=== PATIENT | female | born 1955 | race Caucasian/White ===

== ENCOUNTER 2017-01-14 17:36 | Day surgery (SDC) | payer OTHER ==
[~2017-01-14] VITALS: Ht 162.6 cm; Wt 43.1 kg
[~2017-01-14 17:36] MED LIST: ALAVERT10 MG PO; ALDACTONE25 MG PO; ALDACTONE50 MG PO; ALLEGRA180 MG PO; AMLODIPINE BES2.5 MG PO; ASPIR-LOW81 MG PO; ASPIRIN325 MG PO; B-12250 MCG PO; BACLOFEN10 MG PO; CARDIZEM90 MG PO; CELEXA40 MG PO; CITALOPRAM HBR40 M1 PO; CLARITIN10 M3 PO; DILANTIN100 MG PO; DIVALPROEX SOD125 M1 PO; ERYTHROMYC1 APPLICAT BOTH EYES; Ecotrin PO; Effexor XR PO; FIORICET 50-301 EACH PO; FIORICET,ESG1 TABLET PO; FLEXERIL10 MG PO; FLONASE16 G1 BOTH NARES; FLOVENT 44120 INHALA IH; Feosol PO; GABAPENTIN100 MG PO; GABAPENTIN300 MG PO; HYDROCODON-ACE1 EAC7 PO; IMODIUM MS REL1 EACH PO; INDOCIN50 MG PO; IRON325 M1 PO; IRON45 MG; IRON45 MG PO; IRON55 MG PO; KETOCONAZOLE120 ML TP; KLONOPIN0.5 M1 PO; Keppra PO; LEVOTHROID50 MCG PO; LEVOTHYROXINE100 MCG PO; LEVOXYL50 MCG PO; LIDODERM 5% P1 PATCH PO; LIDODERM 5% P1 PATCH TD; LOPRESSOR25 MG PO; Levothroid,Synthroid PO; METOPROLOL TART25 MG PO; MEVACOR20 MG PO; MULTI VITAMIN1 EACH PO; MULTIVITAMIN1 EAC2 PO; MYSOLINE50 MG PO; Mysoline PO; NAMENDA10 MG PO; NEURONTIN100 MG PO; NIZORAL 2% CREA15 GM TP; NORCO 5/3251 TABLET PO; NOVOLOG PE100 UNITS/ SC; Neurontin PO; OMEPRAZOLE40 M1 PO; OXAYDO5 MG PO; OXYCODONE-APAP1 EAC6 PO; PERCOCET 5/31 TABLET PO; PERCOCET 7.51 TABLET PO; PRAVACHOL20 MG PO; PREDNISONE50 MG PO; PRILOSEC40 MG PO; PROMETHAZINE HC25 M1 PO; PROVENTIL,2.5 MG/3 M IH; PROZAC40 MG PO; Percocet 5/325,Endoc PO; RANITIDINE HCL150 MG PO; SPIRONOLACTONE25 MG PO; SYNTHROID50 MCG PO; VALTREX1000 MG PO; VALTREX50 MG/ML; VALTREX50 MG/ML PO; VIMPAT150 MG PO; VIMPAT50 MG PO; VITAMIN B-12500 MC5 SL; VITAMIN B12-FO1 EACH; VITAMIN B12-FO1 EACH PO; VITAMIN D1000 UNIT PO; ValTRex PO; Vitamin B-12 PO; ZANTAC300 MG PO; ZOFRAN ODT4 MG PO; ZOFRAN4 MG PO; [UNRECOGNIZED DRUG - OTHER]; multivitamin; naproxen
[2017-01-14 23:10] LABS: BASOPHIL COUNT 0.1 K/uL (0-0.1); EOSINOPHIL (%) 4.8 % (0-5); EOSINOPHIL COUNT 0.5 K/uL (0-0.3); HEMATOCRIT 48.4 % (36.0-46.0); IMMATURE GRANULOCYTE (%) 0.3 % (0.0-0.7); INSTRUMENT ABS NEUTROPHIL CT 6.8 K/uL; LYMPHOCYTE COUNT 1.7 K/uL (1.0-2.8); MCH 31.3 PG (29.0-34.0); MCHC 31.8 G/DL (30.0-36.0); MCV 98.4 FL (83-99); MEAN PLAT.VOLUME 9.7 uM^3 (9.5-12.4); MONOCYTE COUNT 0.5 K/uL (0-0.8); NEUTROPHIL (%) 71.7 % (45-76); NEUTROPHIL COUNT 6.8 K/uL (1.8-6.4); PLATELET COUNT 242 K/uL (156-360); RBC DIS.WIDTH-CV 12.9 % (11.8-14.6); RBC DIS.WIDTH-SD 46.5 % (39-53); RED BLOOD COUNT 4.92 M/uL (3.80-5.20); WHITE BLOOD COUNT 9.5 K/uL (4.1-10.2)
[2017-01-14 23:12] VITALS: BP 142/89
[2017-01-14] MEDS ORDERED: GABAPENTIN100 MG PO (23:13)
[2017-01-14 23:21] LABS: CHLORIDE 106 mEq/L (99-109); POTASSIUM 4.4 mEq/L (3.7-5.4); SODIUM 142 mEq/L (136-147)
[2017-01-14 23:23] LABS: GLUCOSE 83 mg/dL (70-99)
[2017-01-14 23:24] LABS: ANION GAP 13 MEQ/L (2-14)
[2017-01-14 23:27] LABS: GFR ESTIMATE (CALCULATED) > 59 mL/min/
[2017-01-14 23:28] LABS: UREA NITROGEN (BUN) 12 mg/dL (9-23)
== END 2017-01-15 00:22 | disposition home or self-care (01) ==
LOC: EME 17:36 → SDC 23:29
PROVIDERS: Physician Assistant
PROC: 0DC38ZZ Extirpation of Matter from Lower Esophagus, Via Natural or Artificial Opening Endoscopic (ICD-10-PCS; principal; 2017-01-14)
DX: R13.10 Dysphagia, unspecified (principal); T18.128A Food in esophagus causing other injury, initial encounter; K20.9 Esophagitis, unspecified; K22.2 Esophageal obstruction; K29.70 Gastritis, unspecified, without bleeding; F32.9 Major depressive disorder, single episode, unspecified; B00.9 Herpesviral infection, unspecified; E03.9 Hypothyroidism, unspecified; M19.90 Unspecified osteoarthritis, unspecified site; I10 Essential (primary) hypertension; G43.909 Migraine, unspecified, not intractable, without status migrainosus; J44.9 Chronic obstructive pulmonary disease, unspecified; E78.5 Hyperlipidemia, unspecified; G40.909 Epilepsy, unspecified, not intractable, without status epilepticus; Z79.899 Other long term (current) drug therapy; Z88.2 Allergy status to sulfonamides
CPT/HCPCS: 70360; 71020; 80048; 81003; 85025; 93005; C9113; J0780; J1885; J7030

== ENCOUNTER 2017-01-21 11:52 | Emergency (ER) | payer OTHER ==
[~2017-01-21] VITALS: Ht 162.6 cm; Wt 43.8 kg
[2017-01-21 13:57] LABS: CHLORIDE 108 mEq/L (99-109); HEMATOCRIT 37.3 % (36.0-46.0); MCH 31.6 PG (29.0-34.0); MCHC 31.9 G/DL (30.0-36.0); MCV 98.9 FL (83-99); MEAN PLAT.VOLUME 9.5 uM^3 (9.5-12.4); PLATELET COUNT 194 K/uL (156-360); POTASSIUM 4.5 mEq/L (3.7-5.4); RBC DIS.WIDTH-CV 12.7 % (11.8-14.6); RBC DIS.WIDTH-SD 46.1 % (39-53); RED BLOOD COUNT 3.77 M/uL (3.80-5.20); SODIUM 142 mEq/L (136-147); WHITE BLOOD COUNT 7.6 K/uL (4.1-10.2)
[2017-01-21 13:58] LABS: GLUCOSE 104 mg/dL (70-99)
[2017-01-21 14:00] LABS: ANION GAP 8 MEQ/L (2-14)
[2017-01-21 14:02] LABS: GFR ESTIMATE (CALCULATED) > 59 mL/min/
[2017-01-21 14:03] LABS: UREA NITROGEN (BUN) 20 mg/dL (9-23)
[2017-01-21 14:10] LABS: TROP-I INTERPRETATION NEGATIVE; TROPONIN-I < 0.01 ng/mL (0.0-0.30)
[2017-01-21 16:00] LABS: ADD MIUA? NO; BILIRUBIN NEGATIVE; BLOOD NEGATIVE; COLOR YELLOW ((YELLOW)); GLUCOSE (STRIP) NEGATIVE; KETONES NEGATIVE; LEUKOCYTES NEGATIVE; NITRITE NEGATIVE; PROTEIN (STRIP) NEGATIVE; SPECIFIC GRAVITY 1.014 (1.000-1.030); UCUL ADDED? NO; UROBILINOGEN 0.2 MG/DL (0.2-1.0)
[2017-01-21 16:30] VITALS: BP 155/79
== END 2017-01-21 17:02 | disposition home or self-care (01) ==
LOC: EME 11:52
PROVIDERS: Emergency Medicine
DX: B34.9 Viral infection, unspecified (principal); E03.9 Hypothyroidism, unspecified; R53.1 Weakness; R19.7 Diarrhea, unspecified; R26.9 Unspecified abnormalities of gait and mobility; J44.9 Chronic obstructive pulmonary disease, unspecified; I10 Essential (primary) hypertension
CPT/HCPCS: 71020; 80048; 81003; 84439; 84443; 84484; 85027; 93005; 99281; 99285; J7030

== ENCOUNTER 2017-01-23 01:12 | Observation (INO) | payer OTHER ==
[~2017-01-23] VITALS: Ht 162.6 cm; Wt 46.3 kg
[2017-01-23 02:30] LABS: BASOPHIL COUNT 0.1 K/uL (0-0.1); EOSINOPHIL (%) 5.2 % (0-5); EOSINOPHIL COUNT 0.4 K/uL (0-0.3); HEMATOCRIT 34.2 % (36.0-46.0); IMMATURE GRANULOCYTE (%) 0.3 % (0.0-0.7); INSTRUMENT ABS NEUTROPHIL CT 4.8 K/uL; LYMPHOCYTE COUNT 1.7 K/uL (1.0-2.8); MCH 31.2 PG (29.0-34.0); MCHC 31.3 G/DL (30.0-36.0); MCV 99.7 FL (83-99); MONOCYTE COUNT 0.7 K/uL (0-0.8); NEUTROPHIL (%) 62.4 % (45-76); NEUTROPHIL COUNT 4.8 K/uL (1.8-6.4); PLATELET COUNT 205 K/uL (156-360); RBC DIS.WIDTH-CV 12.9 % (11.8-14.6); RBC DIS.WIDTH-SD 47.1 % (39-53); RED BLOOD COUNT 3.43 M/uL (3.80-5.20); WHITE BLOOD COUNT 7.7 K/uL (4.1-10.2)
[2017-01-23 02:39] LABS: CHLORIDE 106 mEq/L (99-109); POTASSIUM 3.9 mEq/L (3.7-5.4); SODIUM 139 mEq/L (136-147)
[2017-01-23 02:41] LABS: GLUCOSE 80 mg/dL (70-99)
[2017-01-23 02:42] LABS: ANION GAP 10 MEQ/L (2-14)
[2017-01-23 02:43] LABS: TOTAL BILIRUBIN 0.3 mg/dL (0.0-1.0)
[2017-01-23 02:45] LABS: ALKALINE PHOSPHATASE 55 IU/L (3-129); GFR ESTIMATE (CALCULATED) > 59 mL/min/
[2017-01-23 02:46] LABS: UREA NITROGEN (BUN) 21 mg/dL (9-23)
[2017-01-23 02:48] LABS: LIPASE 14 U/L (1.0-51.0)
[2017-01-23 02:55] LABS: TROP-I INTERPRETATION NEGATIVE; TROPONIN-I < 0.01 ng/mL (0.0-0.30)
[2017-01-23 05:11] LABS: ADD MIUA? YES; BILIRUBIN NEGATIVE; BLOOD NEGATIVE; COLOR YELLOW ((YELLOW)); GLUCOSE (STRIP) NEGATIVE; KETONES NEGATIVE; LEUKOCYTES NEGATIVE; NITRITE NEGATIVE; PROTEIN (STRIP) NEGATIVE; SPECIFIC GRAVITY 1.011 (1.000-1.030); UROBILINOGEN 0.2 MG/DL (0.2-1.0)
[2017-01-23 05:27] LABS: AMPHETAMINE NEGATIVE (500 ng/mL); BARBITURATES PRESUMPTIVE POSITIVE (200 ng/mL); BENZODIAZEPINES NEGATIVE (150 ng/mL); COCAINE NEGATIVE (150 ng/mL); INTERNAL CONTROLS VALID? YES; METHADONE NEGATIVE (200 ng/mL); METHAMPHETAMINE NEGATIVE (500 ng/mL); OPIATES (MORPHINE) NEGATIVE (100 ng/mL); OXYCODONE NEGATIVE (100 ng/mL); PHENCYCLIDINE NEGATIVE (25 ng/mL); PROPOXYPHENE NEGATIVE (300 ng/mL); THC CANNABINOIDS NEGATIVE (50 ng/mL); TRICYCLIC ANTIDEPRESSANTS NEGATIVE (300 ng/mL)
[2017-01-23 05:28] LABS: SAMPLE HEMOLYSIS CHECK 0; SAMPLE ICTERIC CHECK 0; SAMPLE LIPEMIA CHECK 0; SERUM ETHYL ALCOHOL < 10 mg/dL
[2017-01-23 05:28] LABS: ADD MEDTOX COMMENT Y
[2017-01-23 05:37] LABS: BACTERIA NONE SEEN /HPF; EPITHELIAL CELLS RARE /HPF; MUCUS TRACE /LPF; RED BLOOD CELLS 0-5 /HPF (0-5); UCUL ADDED? NO; WHITE BLOOD CELLS 0-5 /HPF (0-5)
[2017-01-23 07:47] VITALS: BP 165/87
[2017-01-23] MEDS ORDERED: METOPROLOL TART50 MG PO (10:18)
[2017-01-23] MEDS ORDERED: MEMANTINE HCL10 MG PO (10:32)
[2017-01-23] MEDS ORDERED: CYCLOBENZAPRINE10 MG PO (10:33)
[2017-01-23 12:04] VITALS: BP 136/75
[2017-01-23 21:00] VITALS: BP 105/56
[2017-01-23 23:41] VITALS: BP 106/60
[2017-01-24 04:05] VITALS: BP 151/72
[2017-01-24 07:07] VITALS: BP 151/72
[2017-01-24 07:28] LABS: HEMATOCRIT 34.9 % (36.0-46.0); MCH 31.1 PG (29.0-34.0); MCHC 30.9 G/DL (30.0-36.0); MCV 100.6 FL (83-99); MEAN PLAT.VOLUME 10.3 uM^3 (9.5-12.4); PLATELET COUNT 156 K/uL (156-360); RBC DIS.WIDTH-CV 12.9 % (11.8-14.6); RBC DIS.WIDTH-SD 47.8 % (39-53); RED BLOOD COUNT 3.47 M/uL (3.80-5.20)
[2017-01-24 07:43] LABS: ANION GAP 4 MEQ/L (2-14); CHLORIDE 107 MEQ/L (99-109); GFR ESTIMATE (CALCULATED) > 59 mL/min/; GLUCOSE 85 mg/dL (70-99); SAMPLE HEMOLYSIS CHECK 0; SAMPLE ICTERIC CHECK 0; SAMPLE LIPEMIA CHECK 0; SODIUM 141 MEQ/L (136-147); UREA NITROGEN (BUN) 14 mg/dL (9-23)
[2017-01-24 07:44] LABS: WHITE BLOOD COUNT 4.1 K/uL (4.1-10.2)
[2017-01-24 11:44] VITALS: BP 108/64
== END 2017-01-24 14:08 | disposition home or self-care (01) ==
LOC: EME 01:12 → EDOF 06:46 → 5WEST 06:46 → EDOF 06:46 → 5WEST 07:43
PROVIDERS: Emergency Medicine; Hospitalist
DX: T48.1X1A Poisoning by skeletal muscle relaxants [neuromuscular blocking agents], accidental (unintentional), initial encounter (principal); T42.8X1A Poisoning by antiparkinsonism drugs and other central muscle-tone depressants, accidental (unintentional), initial encounter; G92 Toxic encephalopathy; G40.909 Epilepsy, unspecified, not intractable, without status epilepticus; E46 Unspecified protein-calorie malnutrition; R62.7 Adult failure to thrive; K21.9 Gastro-esophageal reflux disease without esophagitis; K20.9 Esophagitis, unspecified; K22.2 Esophageal obstruction; J44.9 Chronic obstructive pulmonary disease, unspecified; I10 Essential (primary) hypertension; E78.5 Hyperlipidemia, unspecified; E03.9 Hypothyroidism, unspecified; M51.36 Other intervertebral disc degeneration, lumbar region; Z68.1 Body mass index [BMI] 19.9 or less, adult
CPT/HCPCS: 70450; 71020; 72131; 80048; 80053; 81003; 83690; 84443; 84484; 84999; 85025; 85027; 93005; 94640; 94640 76; 99281; 99285; G0378; G0480; G8978 GP CH; G8979 GP CH; G8980 GP CH; J1644; J2310; J7030; J7120; S0028

== ENCOUNTER 2017-01-29 22:09 | Inpatient (IN) | payer OTHER ==
[~2017-01-29] VITALS: Ht 142.2 cm; Wt 45.0 kg
[~2017-01-29 22:09] MED LIST changes: +CYCLOBENZAPRINE10 MG PO; +MEMANTINE HCL10 MG PO; +METOPROLOL TART50 MG PO
[2017-01-29 23:10] LABS: EOSINOPHIL (%) 1.8 % (0-5); EOSINOPHIL COUNT 0.1 K/uL (0-0.3); HEMATOCRIT 35.6 % (36.0-46.0); IMMATURE GRANULOCYTE (%) 0.2 % (0.0-0.7); INSTRUMENT ABS NEUTROPHIL CT 4.7 K/uL; LYMPHOCYTE COUNT 0.7 K/uL (1.0-2.8); MCH 31.2 PG (29.0-34.0); MCHC 30.9 G/DL (30.0-36.0); MCV 100.8 FL (83-99); MEAN PLAT.VOLUME 9.5 uM^3 (9.5-12.4); MONOCYTE (%) 8.5 % (3-12); MONOCYTE COUNT 0.5 K/uL (0-0.8); NEUTROPHIL (%) 77.1 % (45-76); NEUTROPHIL COUNT 4.7 K/uL (1.8-6.4); PLATELET COUNT 179 K/uL (156-360); RBC DIS.WIDTH-CV 12.8 % (11.8-14.6); RBC DIS.WIDTH-SD 47.2 % (39-53); RED BLOOD COUNT 3.53 M/uL (3.80-5.20)
[2017-01-29 23:17] LABS: CHLORIDE 105 mEq/L (99-109); INTER. NORMALIZED RATIO 1.1; POTASSIUM 4.1 mEq/L (3.7-5.4); PROTHROMBIN TIME 10.7 (9.2-11.2); PTT 31.1 (25-32); SODIUM 139 mEq/L (136-147)
[2017-01-29 23:19] LABS: GLUCOSE 127 mg/dL (70-99)
[2017-01-29 23:20] LABS: ANION GAP 8 MEQ/L (2-14)
[2017-01-29 23:23] LABS: GFR ESTIMATE (CALCULATED) > 59 mL/min/; UREA NITROGEN (BUN) 16 mg/dL (9-23)
[2017-01-29 23:27] LABS: TROP-I INTERPRETATION NEGATIVE; TROPONIN-I < 0.01 ng/mL (0.0-0.30)
[2017-01-30] VITALS (16 sets, daily range): BP systolic 90–191; BP diastolic 24–102
[2017-01-30] MEDS ORDERED: KETOCONAZOLE120 ML TP (00:03)
[2017-01-30 00:12] LABS: HDL CHOLESTEROL 45 MG/DL (Desirable>=50); LDL CHOLESTEROL 113 mg/dL (Desirable<100); NON-HDL CHOLESTEROL 127 mg/dL (Desirable<160); TOTAL CHOLESTEROL 172 mg/dL (Desirable<200); TRIGLYCERIDES 69 MG/DL (Normal: <150)
[2017-01-30 00:59] LABS: IMM.RETIC FRACTION 10.4 % (3-19); RETIC HGB EQUIVALENT 32.2 (28-36)
[2017-01-30 01:34] LABS: ALKALINE PHOSPHATASE 52 IU/L (3-129); DIRECT BILIRUBIN 0.1 mg/dL (0.0-0.3); PREALBUMIN 12.5 mg/dL (10-40); SAMPLE HEMOLYSIS CHECK 0; SAMPLE ICTERIC CHECK 0; SAMPLE LIPEMIA CHECK 0; TOTAL BILIRUBIN 0.3 MG/DL (0.0-1.0)
[2017-01-30 03:34] LABS: BASE EXCESS -0.1 mEq/L (-3 to +3); BICARBONATE 25.4 mEq/L (22-26); CARBOXY HGB 0.5 % (0-5); COMMENTS - BLOOD GASES C+A+; DEVICE NC; METHEMOGLOBIN 1.2 % (0-1.5); O2 FLOW 2 L/MIN; PCO2 44 mm Hg (35-45); PO2 114 mm Hg (80-100); SITE LR; TOTAL RESP RATE 14 resp/min; pH 7.37 (7.35-7.45)
[2017-01-30 03:51] LABS: POINT-OF-CARE METER ID UU13113698; POINT-OF-CARE USER ID AHSUCEG
[2017-01-30 04:15] LABS: CHLORIDE 108 mEq/L (99-109); POTASSIUM 4.1 mEq/L (3.7-5.4); SODIUM 139 mEq/L (136-147)
[2017-01-30 04:18] LABS: ANION GAP 5 MEQ/L (2-14)
[2017-01-30 04:21] LABS: GFR ESTIMATE (CALCULATED) > 59 mL/min/
[2017-01-30 04:22] LABS: UREA NITROGEN (BUN) 13 mg/dL (9-23)
[2017-01-30 04:24] LABS: POINT-OF-CARE METER ID UU13113698
[2017-01-30 04:25] LABS: GLUCOSE 235 mg/dL (70-99)
[2017-01-30 05:58] LABS: METH RESISTANT S AUREUS PCR NEGATIVE (NEGATIVE)
[2017-01-30 06:03] LABS: PROBE CHECK PASS; SPECIMEN PROCESSING CONTROL PASS
[2017-01-30 07:34] LABS: Estimated Average Glucose 114 mg/dL (70-123); HEMOGLOBIN A1c (GLYCOHEMOGLOB) 5.6 % HGB (Below 5.7)
[2017-01-31 03:20] VITALS: BP 149/74
[2017-01-31 06:27] LABS: HEMATOCRIT 31.4 % (36.0-46.0); MCH 31.3 PG (29.0-34.0); MCHC 30.9 G/DL (30.0-36.0); MCV 101.3 FL (83-99); PLATELET COUNT 160 K/uL (156-360); RBC DIS.WIDTH-CV 12.8 % (11.8-14.6); RBC DIS.WIDTH-SD 47.5 % (39-53)
[2017-01-31 06:31] LABS: WHITE BLOOD COUNT 3.8 K/uL (4.1-10.2)
[2017-01-31 06:47] LABS: ANION GAP 3 MEQ/L (2-14); CHLORIDE 110 MEQ/L (99-109); GFR ESTIMATE (CALCULATED) > 59 mL/min/; POTASSIUM 4.2 MEQ/L (3.7-5.4); SAMPLE HEMOLYSIS CHECK 0; SAMPLE ICTERIC CHECK 0; SAMPLE LIPEMIA CHECK 0; SODIUM 141 MEQ/L (136-147); UREA NITROGEN (BUN) 11 mg/dL (9-23)
[2017-01-31 06:55] LABS: GLUCOSE 100 mg/dL (70-99)
[2017-01-31 09:18] VITALS: BP 135/63
[2017-01-31 10:25] LABS: FERRITIN 92 NG/ML (10-291)
[2017-01-31 10:57] LABS: IRON 47 MCG/DL (35-150)
[2017-01-31 17:55] VITALS: BP 140/79
[2017-01-31 22:56] VITALS: BP 170/83
[2017-01-31 23:00] VITALS: BP 160/85
[2017-02-01 08:55] VITALS: BP 178/86
[2017-02-01] MEDS ORDERED: FERROUS SULFAT325 MG PO (09:44)
[2017-02-01 11:31] VITALS: BP 181/91
[2017-02-01 13:00] VITALS: BP 146/84
== END 2017-02-01 13:24 | disposition home or self-care (01) | DRG 917 ==
LOC: EME 22:09 → 4SOUTH 01-30 00:32 → 5EAST 01-30 00:32 → EDOF 01-30 00:32 → 4WEST 01-30 00:32 → 4SOUTH 01-30 02:36 → 4WEST 01-30 04:18 → 5EAST 01-30 20:13
PROVIDERS: Emergency Medicine; Internal Medicine
DX: T40.2X1A Poisoning by other opioids, accidental (unintentional), initial encounter (principal); G92 Toxic encephalopathy; T42.4X1A Poisoning by benzodiazepines, accidental (unintentional), initial encounter; E46 Unspecified protein-calorie malnutrition; R64 Cachexia; I47.2 Ventricular tachycardia; R53.1 Weakness; R29.6 Repeated falls; R62.7 Adult failure to thrive; K22.2 Esophageal obstruction; M54.9 Dorsalgia, unspecified; D64.9 Anemia, unspecified; D75.89 Other specified diseases of blood and blood-forming organs; G40.909 Epilepsy, unspecified, not intractable, without status epilepticus; I10 Essential (primary) hypertension; E78.5 Hyperlipidemia, unspecified; J44.9 Chronic obstructive pulmonary disease, unspecified; E03.9 Hypothyroidism, unspecified; Z87.891 Personal history of nicotine dependence
CPT/HCPCS: 36600; 70450; 71010; 72070; 72110; 72128; 72131; 73502; 80048; 80061; 80076; 80306 90; 81003; 82140; 82607; 82728; 82746; 82803; 82948; 83036; 83540; 84134; 84443; 84466; 84484; 85025; 85027; 85045; 85610; 85730; 87641; 93005; 97530 GO; 97530 GP; 99281; 99284; J1644; J2060; J2270; J2310; J7030; J7042

== ENCOUNTER 2017-03-01 14:47 | Emergency (ER) | payer OTHER ==
[~2017-03-01] VITALS: Ht 162.6 cm; Wt 54.5 kg
[~2017-03-01 14:47] MED LIST changes: +FERROUS SULFAT325 MG PO
[2017-03-01 16:44] LABS: CHLORIDE 106 mEq/L (99-109); HEMATOCRIT 34.6 % (36.0-46.0); MCHC 31.2 G/DL (30.0-36.0); MCV 99.4 FL (83-99); MEAN PLAT.VOLUME 9.6 uM^3 (9.5-12.4); PLATELET COUNT 166 K/uL (156-360); RBC DIS.WIDTH-SD 46.8 % (39-53); RED BLOOD COUNT 3.48 M/uL (3.80-5.20); SODIUM 137 mEq/L (136-147); WHITE BLOOD COUNT 7.3 K/uL (4.1-10.2)
[2017-03-01 16:46] LABS: GLUCOSE 97 mg/dL (70-99)
[2017-03-01 16:47] LABS: ANION GAP 5 MEQ/L (2-14)
[2017-03-01 16:49] LABS: GFR ESTIMATE (CALCULATED) > 59 mL/min/
[2017-03-01 16:50] LABS: UREA NITROGEN (BUN) 19 mg/dL (9-23)
[2017-03-01 17:25] LABS: ADD MIUA? YES; BILIRUBIN NEGATIVE; BLOOD NEGATIVE; COLOR YELLOW ((YELLOW)); GLUCOSE (STRIP) NEGATIVE; KETONES NEGATIVE; LEUKOCYTES TRACE; NITRITE NEGATIVE; PROTEIN (STRIP) 30; SPECIFIC GRAVITY 1.015 (1.000-1.030); UROBILINOGEN 0.2 MG/DL (0.2-1.0)
[2017-03-01 17:39] LABS: BACTERIA NONE SEEN /HPF; EPITHELIAL CELLS RARE /HPF; MUCUS NONE SEEN /LPF; RED BLOOD CELLS 0-5 /HPF (0-5); UCUL ADDED? NO
[2017-03-01 17:40] LABS: INTER. NORMALIZED RATIO 1.1; PROTHROMBIN TIME 10.7 (9.2-11.2); PTT 29.3 (25-32)
[2017-03-01] MEDS ORDERED: PERCOCET 5/31 TABLET PO (19:43)
[2017-03-01] MEDS ORDERED: ULTRAM50 MG PO (19:43)
[2017-03-01 20:21] VITALS: BP 131/74
== END 2017-03-01 20:25 | disposition home or self-care (01) ==
LOC: EME 14:47
PROVIDERS: Emergency Medicine
DX: S72.112A Displaced fracture of greater trochanter of left femur, initial encounter for closed fracture (principal); S32.512A Fracture of superior rim of left pubis, initial encounter for closed fracture; W01.0XXA Fall on same level from slipping, tripping and stumbling without subsequent striking against object, initial encounter; R53.1 Weakness; R53.83 Other fatigue; R60.0 Localized edema; I10 Essential (primary) hypertension; E03.9 Hypothyroidism, unspecified; J44.9 Chronic obstructive pulmonary disease, unspecified; J45.909 Unspecified asthma, uncomplicated; Z87.891 Personal history of nicotine dependence
CPT/HCPCS: 72192; 73502; 80048; 81003; 85027; 85610; 85730; 99281; 99285

== ENCOUNTER 2017-03-18 18:37 | Emergency (ER) | payer OTHER ==
[~2017-03-18] VITALS: Ht 162.6 cm; Wt 46.8 kg
[~2017-03-18 18:37] MED LIST changes: +ULTRAM50 MG PO
[2017-03-18] MEDS ORDERED: FLEXERIL10 MG PO (19:27)
[2017-03-18] MEDS ORDERED: PROMETHAZINE HC25 M1 PO (19:28)
[2017-03-18] MEDS ORDERED: OMEPRAZOLE40 M1 PO (19:33)
[2017-03-18] MEDS ORDERED: PERCOCET 7.51 TABLET PO (19:34)
[2017-03-18] MEDS ORDERED: BACLOFEN10 MG PO (19:39)
[2017-03-18] MEDS ORDERED: DRONABINOL2.5 MG PO (19:40)
[2017-03-18] MEDS ORDERED: CLARITIN,ALAVAR10 MG PO (19:44)
[2017-03-18] MEDS ORDERED: NORCO 5/3251 TABLET PO (20:45)
[2017-03-18 20:52] VITALS: BP 120/65
== END 2017-03-18 20:53 | disposition home or self-care (01) ==
LOC: EME 18:37
DX: M54.5 Low back pain (principal); Z87.891 Personal history of nicotine dependence
CPT/HCPCS: 72100; 99281; 99284

== ENCOUNTER 2017-04-29 10:13 | Emergency (ER) | payer OTHER ==
[~2017-04-29] VITALS: Ht 162.6 cm; Wt 44.1 kg
[~2017-04-29 10:13] MED LIST changes: +CLARITIN,ALAVAR10 MG PO; +DRONABINOL2.5 MG PO
[2017-04-29 11:39] LABS: EOSINOPHIL (%) 0.4 % (0-5); HEMATOCRIT 36.5 % (36.0-46.0); IMMATURE GRANULOCYTE (%) 0.4 % (0.0-0.7); INSTRUMENT ABS NEUTROPHIL CT 3.9 K/uL; LYMPHOCYTE COUNT 0.8 K/uL (1.0-2.8); MCH 31.5 PG (29.0-34.0); MCHC 31.5 G/DL (30.0-36.0); MONOCYTE (%) 9.7 % (3-12); MONOCYTE COUNT 0.5 K/uL (0-0.8); NEUTROPHIL (%) 73.4 % (45-76); NEUTROPHIL COUNT 3.9 K/uL (1.8-6.4); PLATELET COUNT 178 K/uL (156-360); RBC DIS.WIDTH-CV 13.7 % (11.8-14.6); RBC DIS.WIDTH-SD 50.4 % (39-53); RED BLOOD COUNT 3.65 M/uL (3.80-5.20); WHITE BLOOD COUNT 5.4 K/uL (4.1-10.2)
[2017-04-29 11:47] LABS: CHLORIDE 103 mEq/L (99-109); POTASSIUM 4.7 mEq/L (3.7-5.4); SODIUM 139 mEq/L (136-147)
[2017-04-29 11:49] LABS: GLUCOSE 92 mg/dL (70-99)
[2017-04-29 11:50] LABS: ANION GAP 7 MEQ/L (2-14)
[2017-04-29 11:53] LABS: GFR ESTIMATE (CALCULATED) > 59 mL/min/
[2017-04-29 11:54] LABS: UREA NITROGEN (BUN) 17 mg/dL (9-23)
[2017-04-29 12:45] LABS: TROP-I INTERPRETATION NEGATIVE; TROPONIN-I < 0.01 ng/mL (0.0-0.30)
[2017-04-29 13:42] LABS: ADD MIUA? YES; BILIRUBIN NEGATIVE; BLOOD LARGE; COLOR YELLOW ((YELLOW)); GLUCOSE (STRIP) NEGATIVE; KETONES NEGATIVE; LEUKOCYTES SMALL; NITRITE NEGATIVE; PROTEIN (STRIP) NEGATIVE; SPECIFIC GRAVITY 1.009 (1.000-1.030); UROBILINOGEN 0.2 MG/DL (0.2-1.0)
[2017-04-29 13:49] LABS: BACTERIA RARE /HPF; EPITHELIAL CELLS RARE /HPF; MUCUS TRACE /LPF; RED BLOOD CELLS TNTC /HPF (0-5); UCUL ADDED? NO
[2017-04-29 17:35] VITALS: BP 134/60
== END 2017-04-29 17:43 | disposition home or self-care (01) ==
LOC: EME 10:13
PROVIDERS: Emergency Medicine; Physician Assistant
DX: R53.1 Weakness (principal); K62.5 Hemorrhage of anus and rectum; R26.2 Difficulty in walking, not elsewhere classified; E03.9 Hypothyroidism, unspecified; R94.31 Abnormal electrocardiogram [ECG] [EKG]; R64 Cachexia; Z68.1 Body mass index [BMI] 19.9 or less, adult; I10 Essential (primary) hypertension; J44.9 Chronic obstructive pulmonary disease, unspecified; K21.9 Gastro-esophageal reflux disease without esophagitis; E78.5 Hyperlipidemia, unspecified; F32.9 Major depressive disorder, single episode, unspecified; G43.909 Migraine, unspecified, not intractable, without status migrainosus; Z87.19 Personal history of other diseases of the digestive system; Z91.81 History of falling
CPT/HCPCS: 80048; 81003; 84439; 84443; 84484; 85025; 93005; 99281; 99285; J7030

== ENCOUNTER 2017-05-21 15:51 | Emergency (ER) | payer OTHER ==
[~2017-05-21] VITALS: Ht 160 cm; Wt 44.9 kg
[2017-05-21 16:57] LABS: POINT-OF-CARE METER ID UU13113778
[2017-05-21 17:28] LABS: CHLORIDE 100 mEq/L (99-109); HEMATOCRIT 38.5 % (36.0-46.0); MCH 31.2 PG (29.0-34.0); MCHC 31.7 G/DL (30.0-36.0); MCV 98.5 FL (83-99); MEAN PLAT.VOLUME 8.8 uM^3 (9.5-12.4); PLATELET COUNT 284 K/uL (156-360); POTASSIUM 3.9 mEq/L (3.7-5.4); RBC DIS.WIDTH-CV 13.2 % (11.8-14.6); RBC DIS.WIDTH-SD 47.6 % (39-53); RED BLOOD COUNT 3.91 M/uL (3.80-5.20); SODIUM 136 mEq/L (136-147); WHITE BLOOD COUNT 9.3 K/uL (4.1-10.2)
[2017-05-21 17:30] LABS: GLUCOSE 73 mg/dL (70-99)
[2017-05-21 17:31] LABS: ANION GAP 9 MEQ/L (2-14)
[2017-05-21 17:34] LABS: GFR ESTIMATE (CALCULATED) > 59 mL/min/
[2017-05-21 17:35] LABS: UREA NITROGEN (BUN) 22 mg/dL (9-23)
[2017-05-21 20:21] LABS: ADD MIUA? YES; BILIRUBIN NEGATIVE; BLOOD NEGATIVE; COLOR YELLOW ((YELLOW)); GLUCOSE (STRIP) NEGATIVE; KETONES NEGATIVE; LEUKOCYTES MODERATE; NITRITE NEGATIVE; PROTEIN (STRIP) NEGATIVE; SPECIFIC GRAVITY 1.009 (1.000-1.030); UROBILINOGEN 0.2 MG/DL (0.2-1.0)
[2017-05-21 20:32] LABS: BACTERIA RARE /HPF; EPITHELIAL CELLS RARE /HPF; HYALINE CASTS 0-5 /LPF; MUCUS TRACE /LPF; RED BLOOD CELLS 0-5 /HPF (0-5)
[2017-05-21] MEDS ORDERED: KEFLEX500 MG PO (21:27)
[2017-05-21 21:46] VITALS: BP 119/73
== END 2017-05-21 21:52 | disposition home or self-care (01) ==
LOC: EME 15:51
PROVIDERS: Emergency Medicine
DX: N39.0 Urinary tract infection, site not specified (principal); R53.1 Weakness; I10 Essential (primary) hypertension; E78.5 Hyperlipidemia, unspecified; J44.9 Chronic obstructive pulmonary disease, unspecified; K21.9 Gastro-esophageal reflux disease without esophagitis; F32.9 Major depressive disorder, single episode, unspecified; E03.9 Hypothyroidism, unspecified; G89.29 Other chronic pain; M54.9 Dorsalgia, unspecified; Z79.891 Long term (current) use of opiate analgesic; F19.10 Other psychoactive substance abuse, uncomplicated
CPT/HCPCS: 71020; 73564; 80048; 81003; 82948; 85027; 93005; 99281; 99284; J7030

== ENCOUNTER 2017-05-24 21:07 | Emergency (ER) | payer OTHER ==
[~2017-05-24] VITALS: Ht 162.6 cm; Wt 48.6 kg
[~2017-05-24 21:07] MED LIST changes: +KEFLEX500 MG PO
[2017-05-24 21:49] LABS: ADD MIUA? YES; BILIRUBIN NEGATIVE; BLOOD MODERATE; COLOR YELLOW ((YELLOW)); GLUCOSE (STRIP) NEGATIVE; KETONES NEGATIVE; LEUKOCYTES SMALL; NITRITE NEGATIVE; PROTEIN (STRIP) NEGATIVE; SPECIFIC GRAVITY 1.011 (1.000-1.030); UROBILINOGEN 0.2 MG/DL (0.2-1.0)
[2017-05-24 22:13] LABS: BACTERIA RARE /HPF; EPITHELIAL CELLS RARE /HPF; MUCUS TRACE /LPF; RED BLOOD CELLS 0-5 /HPF (0-5); UCUL ADDED? NO
[2017-05-25] MEDS ORDERED: ATARAX,VISTARIL25 MG PO (00:22)
[2017-05-25 00:26] VITALS: BP 161/79
== END 2017-05-25 00:29 | disposition home or self-care (01) ==
LOC: EME 21:07
DX: R53.1 Weakness (principal); Z91.81 History of falling; R29.6 Repeated falls; I10 Essential (primary) hypertension; E03.9 Hypothyroidism, unspecified
CPT/HCPCS: 81003; 99281; 99284; Q0177

== ENCOUNTER 2017-06-02 17:17 | Emergency (ER) | payer OTHER ==
[~2017-06-02] VITALS: Ht 162.6 cm; Wt 48.4 kg
[~2017-06-02 17:17] MED LIST changes: +ATARAX,VISTARIL25 MG PO
[2017-06-02] MEDS ORDERED: VIMPAT150 MG PO (18:25)
[2017-06-02] MEDS ORDERED: COZAAR100 MG PO (18:31)
[2017-06-02] MEDS ORDERED: LISINOPRIL5 MG PO (18:31)
[2017-06-02 18:59] LABS: HEMATOCRIT 35.9 % (36.0-46.0); MCH 31.7 PG (29.0-34.0); MCHC 31.5 G/DL (30.0-36.0); MCV 100.8 FL (83-99); MEAN PLAT.VOLUME 9.5 uM^3 (9.5-12.4); PLATELET COUNT 236 K/uL (156-360); RBC DIS.WIDTH-CV 13.1 % (11.8-14.6); RBC DIS.WIDTH-SD 48.8 % (39-53); RED BLOOD COUNT 3.56 M/uL (3.80-5.20); WHITE BLOOD COUNT 4.1 K/uL (4.1-10.2)
[2017-06-02 19:09] LABS: CHLORIDE 111 mEq/L (99-109); POTASSIUM 4.5 mEq/L (3.7-5.4); SODIUM 143 mEq/L (136-147)
[2017-06-02 19:10] LABS: GLUCOSE 80 mg/dL (70-99)
[2017-06-02 19:12] LABS: ANION GAP 7 MEQ/L (2-14)
[2017-06-02 19:14] LABS: GFR ESTIMATE (CALCULATED) > 59 mL/min/
[2017-06-02 19:15] LABS: UREA NITROGEN (BUN) 13 mg/dL (9-23)
[2017-06-02 19:25] LABS: TROP-I INTERPRETATION NEGATIVE; TROPONIN-I < 0.01 ng/mL (0.0-0.30)
[2017-06-02 19:35] LABS: ADD MIUA? YES; BILIRUBIN NEGATIVE; BLOOD NEGATIVE; COLOR YELLOW ((YELLOW)); GLUCOSE (STRIP) NEGATIVE; KETONES NEGATIVE; LEUKOCYTES TRACE; NITRITE NEGATIVE; PROTEIN (STRIP) NEGATIVE; UROBILINOGEN 0.2 MG/DL (0.2-1.0)
[2017-06-02 19:37] LABS: BACTERIA NONE SEEN /HPF; EPITHELIAL CELLS RARE /HPF; MUCUS NONE SEEN /LPF; RED BLOOD CELLS 0-5 /HPF (0-5); WHITE BLOOD CELLS 0-5 /HPF (0-5)
[2017-06-02 21:07] VITALS: BP 106/65
== END 2017-06-02 21:07 | disposition home or self-care (01) ==
LOC: EME 17:17
PROVIDERS: Physician Assistant
DX: E86.0 Dehydration (principal); R42 Dizziness and giddiness; J44.9 Chronic obstructive pulmonary disease, unspecified; I10 Essential (primary) hypertension; K21.9 Gastro-esophageal reflux disease without esophagitis; E78.5 Hyperlipidemia, unspecified; R56.9 Unspecified convulsions; F31.9 Bipolar disorder, unspecified
CPT/HCPCS: 71020; 80048; 81003; 84484; 85027; 93005; 99281; 99284; J7030

== ENCOUNTER 2017-06-27 04:41 | Emergency (ER) | payer OTHER ==
[~2017-06-27] VITALS: Ht 162.6 cm; Wt 50.7 kg
[~2017-06-27 04:41] MED LIST changes: +COZAAR100 MG PO; +LISINOPRIL5 MG PO
[2017-06-27 06:04] LABS: HEMATOCRIT 43.8 % (36.0-46.0); MCH 31.2 PG (29.0-34.0); MCV 97.6 FL (83-99); MEAN PLAT.VOLUME 9.7 uM^3 (9.5-12.4); PLATELET COUNT 195 K/uL (156-360); RBC DIS.WIDTH-CV 12.7 % (11.8-14.6); RBC DIS.WIDTH-SD 45.6 % (39-53); RED BLOOD COUNT 4.49 M/uL (3.80-5.20); WHITE BLOOD COUNT 6.7 K/uL (4.1-10.2)
[2017-06-27 06:09] LABS: CHLORIDE 103 mEq/L (99-109); POTASSIUM 4.3 mEq/L (3.7-5.4); SODIUM 140 mEq/L (136-147)
[2017-06-27 06:11] LABS: GLUCOSE 95 mg/dL (70-99)
[2017-06-27 06:12] LABS: ANION GAP 10 MEQ/L (2-14)
[2017-06-27 06:14] LABS: SERUM ETHYL ALCOHOL < 10 mg/dL
[2017-06-27 06:15] LABS: GFR ESTIMATE (CALCULATED) 49 mL/min/
[2017-06-27 06:16] LABS: UREA NITROGEN (BUN) 28 mg/dL (9-23)
[2017-06-27 06:20] LABS: TROP-I INTERPRETATION NEGATIVE; TROPONIN-I 0.02 ng/mL (0.0-0.30)
[2017-06-27 06:31] LABS: ADD MIUA? NO; BILIRUBIN NEGATIVE; BLOOD NEGATIVE; COLOR STRAW ((YELLOW)); GLUCOSE (STRIP) NEGATIVE; KETONES NEGATIVE; LEUKOCYTES NEGATIVE; NITRITE NEGATIVE; PROTEIN (STRIP) NEGATIVE; SPECIFIC GRAVITY 1.003 (1.000-1.030); UCUL ADDED? NO; UROBILINOGEN 0.2 MG/DL (0.2-1.0)
[2017-06-27 07:29] LABS: AMPHETAMINE NEGATIVE (500 ng/mL); BARBITURATES NEGATIVE (200 ng/mL); BENZODIAZEPINES NEGATIVE (150 ng/mL); COCAINE NEGATIVE (150 ng/mL); INTERNAL CONTROLS VALID? YES; METHADONE NEGATIVE (200 ng/mL); METHAMPHETAMINE NEGATIVE (500 ng/mL); OPIATES (MORPHINE) NEGATIVE (100 ng/mL); OXYCODONE NEGATIVE (100 ng/mL); PHENCYCLIDINE NEGATIVE (25 ng/mL); PROPOXYPHENE NEGATIVE (300 ng/mL); THC CANNABINOIDS NEGATIVE (50 ng/mL); TRICYCLIC ANTIDEPRESSANTS NEGATIVE (300 ng/mL)
[2017-06-27 08:43] VITALS: BP 172/84
== END 2017-06-27 09:19 | disposition home or self-care (01) ==
LOC: EME → EDBD 04:41 → EME 09:19
PROVIDERS: Emergency Medicine
PROC: 0HQ0XZZ Repair Scalp Skin, External Approach (ICD-10-PCS; principal; 2017-06-27)
DX: S01.01XA Laceration without foreign body of scalp, initial encounter (principal); W18.2XXA Fall in (into) shower or empty bathtub, initial encounter; R53.83 Other fatigue; T50.905A Adverse effect of unspecified drugs, medicaments and biological substances, initial encounter; K21.9 Gastro-esophageal reflux disease without esophagitis; J44.9 Chronic obstructive pulmonary disease, unspecified; I10 Essential (primary) hypertension; E78.5 Hyperlipidemia, unspecified; E03.9 Hypothyroidism, unspecified
CPT/HCPCS: 70450; 80048; 81003; 84484; 85027; 93005; 99281; 99285; G0480; J2310

== ENCOUNTER 2017-07-18 15:55 | Emergency (ER) | payer OTHER ==
[~2017-07-18] VITALS: Ht 162.6 cm; Wt 47.3 kg
[2017-07-18 16:26] LABS: HEMATOCRIT 38.6 % (36.0-46.0); MCHC 32.6 G/DL (30.0-36.0); MCV 94.8 FL (83-99); MEAN PLAT.VOLUME 9.2 uM^3 (9.5-12.4); PLATELET COUNT 245 K/uL (156-360); RBC DIS.WIDTH-SD 41.8 % (39-53); RED BLOOD COUNT 4.07 M/uL (3.80-5.20); WHITE BLOOD COUNT 4.7 K/uL (4.1-10.2)
[2017-07-18 16:35] LABS: CHLORIDE 104 mEq/L (99-109); POTASSIUM 4.7 mEq/L (3.7-5.4); SODIUM 138 mEq/L (136-147)
[2017-07-18 16:37] LABS: GLUCOSE 103 mg/dL (70-99)
[2017-07-18 16:38] LABS: ANION GAP 9 MEQ/L (2-14)
[2017-07-18 16:41] LABS: GFR ESTIMATE (CALCULATED) > 59 mL/min/
[2017-07-18 16:42] LABS: UREA NITROGEN (BUN) 13 mg/dL (9-23)
[2017-07-18 19:17] VITALS: BP 168/87
== END 2017-07-18 19:19 | disposition home or self-care (01) ==
LOC: EME 15:55
DX: E86.0 Dehydration (principal); E03.9 Hypothyroidism, unspecified; R56.9 Unspecified convulsions; Z88.2 Allergy status to sulfonamides
CPT/HCPCS: 80048; 85027; 99281; 99285; J7030

== ENCOUNTER 2017-08-08 22:46 | Observation (INO) | payer OTHER ==
[~2017-08-08] VITALS: Ht 162.6 cm; Wt 52.4 kg
[~2017-08-08 22:46] MED LIST changes: +PERCOCET 10/1 TABLET PO; +VIMPAT200 MG PO
[2017-08-08 23:55] LABS: HEMATOCRIT 36.7 % (36.0-46.0); MCH 31.2 PG (29.0-34.0); MCHC 31.6 G/DL (30.0-36.0); MCV 98.7 FL (83-99); MEAN PLAT.VOLUME 9.2 uM^3 (9.5-12.4); PLATELET COUNT 235 K/uL (156-360); RBC DIS.WIDTH-CV 12.9 % (11.8-14.6); RBC DIS.WIDTH-SD 46.5 % (39-53); RED BLOOD COUNT 3.72 M/uL (3.80-5.20); WHITE BLOOD COUNT 6.7 K/uL (4.1-10.2)
[2017-08-09 00:01] LABS: CHLORIDE 104 mEq/L (99-109); POTASSIUM 3.9 mEq/L (3.7-5.4); SODIUM 138 mEq/L (136-147)
[2017-08-09 00:02] LABS: GLUCOSE 110 mg/dL (70-99)
[2017-08-09 00:04] LABS: ANION GAP 6 MEQ/L (2-14)
[2017-08-09 00:06] LABS: GFR ESTIMATE (CALCULATED) 54 mL/min/
[2017-08-09 00:07] LABS: UREA NITROGEN (BUN) 18 mg/dL (9-23)
[2017-08-09 00:09] LABS: CREATINE KINASE 86 IU/L (1-294)
[2017-08-09] MEDS ORDERED: HYDROCHLOROTHIA25 MG PO (10:14)
[2017-08-09 13:34] LABS: ADD MIUA? YES; BILIRUBIN NEGATIVE; BLOOD NEGATIVE; COLOR YELLOW ((YELLOW)); GLUCOSE (STRIP) NEGATIVE; KETONES NEGATIVE; LEUKOCYTES TRACE; NITRITE NEGATIVE; PROTEIN (STRIP) NEGATIVE; SPECIFIC GRAVITY 1.008 (1.000-1.030); UROBILINOGEN 0.2 MG/DL (0.2-1.0)
[2017-08-09 13:39] LABS: BACTERIA RARE /HPF; EPITHELIAL CELLS RARE /HPF; HYALINE CASTS 0-5 /LPF; MUCUS TRACE /LPF; RED BLOOD CELLS 0-5 /HPF (0-5); UCUL ADDED? YES
[2017-08-09 13:42] LABS: AMPHETAMINE NEGATIVE (500 ng/mL); BARBITURATES PRESUMPTIVE POSITIVE (200 ng/mL); BENZODIAZEPINES NEGATIVE (150 ng/mL); COCAINE NEGATIVE (150 ng/mL); METHADONE NEGATIVE (200 ng/mL); METHAMPHETAMINE NEGATIVE (500 ng/mL); OPIATES (MORPHINE) NEGATIVE (100 ng/mL); PHENCYCLIDINE NEGATIVE (25 ng/mL); THC CANNABINOIDS NEGATIVE (50 ng/mL); TRICYCLIC ANTIDEPRESSANTS NEGATIVE (300 ng/mL)
[2017-08-09 13:43] LABS: ADD MEDTOX COMMENT Y; INTERNAL CONTROLS VALID? YES; OXYCODONE NEGATIVE (100 ng/mL); PROPOXYPHENE NEGATIVE (300 ng/mL)
[2017-08-09 14:20] VITALS: BP 120/67
[2017-08-09] MEDS ORDERED: IMODIUM A-D2 M2 PO (15:25)
[2017-08-09 16:00] VITALS: BP 115/62
[2017-08-09 21:00] VITALS: BP 92/54
[2017-08-09 23:30] VITALS: BP 164/86
[2017-08-10 03:59] VITALS: BP 122/76
[2017-08-10 08:40] VITALS: BP 157/73
[2017-08-10 11:26] VITALS: BP 132/71
[2017-08-10] MEDS ORDERED: MYSOLINE250 MG PO (12:18)
== END 2017-08-10 15:49 | disposition home or self-care (01) ==
LOC: EME 22:46 → EDOF 08-09 09:54 → 5WEST 08-09 09:54 → ENRESERV 08-09 10:28 → EDOF 08-09 13:21 → 5WEST 08-09 14:09
PROVIDERS: Emergency Medicine; Physician Assistant
DX: G40.909 Epilepsy, unspecified, not intractable, without status epilepticus (principal); S00.83XA Contusion of other part of head, initial encounter; K21.0 Gastro-esophageal reflux disease with esophagitis; I73.00 Raynaud's syndrome without gangrene; R64 Cachexia; J44.9 Chronic obstructive pulmonary disease, unspecified; I10 Essential (primary) hypertension; K22.2 Esophageal obstruction; Z82.0 Family history of epilepsy and other diseases of the nervous system; Z82.49 Family history of ischemic heart disease and other diseases of the circulatory system; D64.9 Anemia, unspecified; E03.9 Hypothyroidism, unspecified; E78.5 Hyperlipidemia, unspecified
CPT/HCPCS: 70450; 70486; 80048; 81003; 82550; 83735; 84999; 85027; 87077; 87086; 87186; 93005; 95819; 99202; 99281; 99285; G0378; J1650; J7030

== ENCOUNTER 2017-11-23 15:00 | Emergency (ER) | payer OTHER ==
[~2017-11-23] VITALS: Ht 162.6 cm; Wt 49.4 kg
[~2017-11-23 15:00] MED LIST changes: +HYDROCHLOROTHIA25 MG PO; +IMODIUM A-D2 M2 PO; +MYSOLINE250 MG PO
[2017-11-23 16:57] LABS: HEMATOCRIT 36.4 % (36.0-46.0); MCH 32.7 PG (29.0-34.0); MCV 99.2 FL (83-99); PLATELET COUNT 205 K/uL (156-360); RBC DIS.WIDTH-CV 12.5 % (11.8-14.6); RBC DIS.WIDTH-SD 45.3 % (39-53); RED BLOOD COUNT 3.67 M/uL (3.80-5.20); WHITE BLOOD COUNT 7.5 K/uL (4.1-10.2)
[2017-11-23 17:06] LABS: CHLORIDE 103 mEq/L (99-109); POTASSIUM 3.9 mEq/L (3.7-5.4); SODIUM 137 mEq/L (136-147)
[2017-11-23 17:08] LABS: GLUCOSE 100 mg/dL (70-99)
[2017-11-23 17:12] LABS: CREATININE 0.9 mg/dL (0.6-1.3); GFR ESTIMATE (CALCULATED) > 59 mL/min/
[2017-11-23 17:13] LABS: UREA NITROGEN (BUN) 27 mg/dL (9-23)
[2017-11-23 17:34] LABS: AMPHETAMINE NEGATIVE (500 ng/mL); BARBITURATES PRESUMPTIVE POSITIVE (200 ng/mL); BENZODIAZEPINES NEGATIVE (150 ng/mL); BUPRENORPHINE NEGATIVE (10 ng/mL); COCAINE NEGATIVE (150 ng/mL); METHADONE NEGATIVE (200 ng/mL); METHAMPHETAMINE NEGATIVE (500 ng/mL); OPIATES (MORPHINE) NEGATIVE (100 ng/mL); OXYCODONE NEGATIVE (100 ng/mL); PHENCYCLIDINE NEGATIVE (25 ng/mL); PROPOXYPHENE NEGATIVE (300 ng/mL); THC CANNABINOIDS NEGATIVE (50 ng/mL); TRICYCLIC ANTIDEPRESSANTS NEGATIVE (300 ng/mL)
[2017-11-23] MEDS ORDERED: ZOFRAN ODT8 MG PO (18:58)
[2017-11-23 19:11] VITALS: BP 151/95
== END 2017-11-23 19:11 | disposition home or self-care (01) ==
LOC: EME 15:00
PROVIDERS: Physician Assistant
DX: R11.2 Nausea with vomiting, unspecified (principal); J44.9 Chronic obstructive pulmonary disease, unspecified; I10 Essential (primary) hypertension; E78.5 Hyperlipidemia, unspecified; E03.9 Hypothyroidism, unspecified; K21.9 Gastro-esophageal reflux disease without esophagitis; F32.9 Major depressive disorder, single episode, unspecified; Z90.49 Acquired absence of other specified parts of digestive tract; Z88.2 Allergy status to sulfonamides
CPT/HCPCS: 80048; 84999; 85027; 99281; 99284; J2405; J7030

== ENCOUNTER 2018-01-08 12:11 | Emergency (ER) | payer OTHER ==
[~2018-01-08] VITALS: Ht 162.6 cm; Wt 46.8 kg
[~2018-01-08 12:11] MED LIST changes: +ZOFRAN ODT8 MG PO
[2018-01-08 13:45] LABS: BASOPHIL (%) 0.4 % (0-1); EOSINOPHIL (%) 0.7 % (0-5); EOSINOPHIL COUNT 0.1 K/uL (0-0.3); HEMATOCRIT 45.1 % (36.0-46.0); HEMOGLOBIN 14.7 G/DL (11.9-15.5); IMMATURE GRANULOCYTE (%) 0.3 % (0.0-0.7); LYMPHOCYTE (%) 13.2 % (15-42); LYMPHOCYTE COUNT 1.2 K/uL (1.0-2.8); MCH 32.3 PG (29.0-34.0); MCHC 32.6 G/DL (30.0-36.0); MCV 99.1 FL (83-99); MONOCYTE (%) 7.4 % (3-12); MONOCYTE COUNT 0.7 K/uL (0-0.8); NEUTROPHIL COUNT 7.1 K/uL (1.8-6.4); PLATELET COUNT 262 K/uL (156-360); RBC DIS.WIDTH-CV 12.4 % (11.8-14.6); RED BLOOD COUNT 4.55 M/uL (3.80-5.20); WHITE BLOOD COUNT 9.1 K/uL (4.1-10.2)
[2018-01-08 13:53] LABS: ALBUMIN 4.3 g/dL (3.2-4.8); CHLORIDE 102 mEq/L (99-109); POTASSIUM 4.2 mEq/L (3.7-5.4); SODIUM 141 mEq/L (136-147)
[2018-01-08 13:54] LABS: MAGNESIUM 2.1 mg/dL (1.3-2.7)
[2018-01-08 13:55] LABS: GLUCOSE 94 mg/dL (70-99)
[2018-01-08 13:56] LABS: TOTAL PROTEIN 7.9 g/dL (6.4-8.3)
[2018-01-08 13:57] LABS: TOTAL BILIRUBIN 0.6 mg/dL (0.0-1.0)
[2018-01-08 13:59] LABS: ALKALINE PHOSPHATASE 85 IU/L (3-129); CREATININE 0.9 mg/dL (0.6-1.3); GFR ESTIMATE (CALCULATED) > 59 mL/min/
[2018-01-08 14:00] LABS: UREA NITROGEN (BUN) 19 mg/dL (9-23)
[2018-01-08 14:01] LABS: AST (GOT) 22 IU/L (2-34)
[2018-01-08 14:02] LABS: ALT (GPT) 20 IU/L (3-49)
[2018-01-08 14:05] LABS: TROP-I INTERPRETATION NEGATIVE; TROPONIN-I 0.01 ng/mL (0.0-0.30)
[2018-01-08 16:59] LABS: TROP-I INTERPRETATION NEGATIVE; TROPONIN-I < 0.01 ng/mL (0.0-0.30)
[2018-01-08 17:00] VITALS: BP 170/100
== END 2018-01-08 17:26 | disposition short-term general hospital (02) ==
LOC: EME 12:11
PROVIDERS: Emergency Medicine
PROC: 0DC38ZZ Extirpation of Matter from Lower Esophagus, Via Natural or Artificial Opening Endoscopic (ICD-10-PCS; principal; 2018-01-08)
DX: T18.128A Food in esophagus causing other injury, initial encounter (principal); R11.2 Nausea with vomiting, unspecified; K44.9 Diaphragmatic hernia without obstruction or gangrene; Z87.19 Personal history of other diseases of the digestive system; J44.9 Chronic obstructive pulmonary disease, unspecified; K21.9 Gastro-esophageal reflux disease without esophagitis; E78.5 Hyperlipidemia, unspecified; I10 Essential (primary) hypertension; E03.9 Hypothyroidism, unspecified; F32.9 Major depressive disorder, single episode, unspecified; R56.9 Unspecified convulsions; Z88.2 Allergy status to sulfonamides
CPT/HCPCS: 70360; 71046; 80053; 83735; 84484; 85025; 93005; J0330; J2405

== ENCOUNTER 2018-02-15 12:12 | Observation (INO) | payer OTHER ==
[~2018-02-15] VITALS: Ht 162.6 cm; Wt 51.8 kg
[2018-02-15 13:59] LABS: HEMOGLOBIN 11.2 G/DL (11.9-15.5); MCH 31.8 PG (29.0-34.0); MCV 99.4 FL (83-99); PLATELET COUNT 217 K/uL (156-360); RBC DIS.WIDTH-CV 11.9 % (11.8-14.6); RBC DIS.WIDTH-SD 43.5 % (39-53); RED BLOOD COUNT 3.52 M/uL (3.80-5.20); WHITE BLOOD COUNT 6.6 K/uL (4.1-10.2)
[2018-02-15 14:05] LABS: APPEARANCE CLEAR ((CLEAR)); BILIRUBIN NEGATIVE; BLOOD NEGATIVE; COLOR STRAW ((YELLOW)); GLUCOSE (STRIP) NEGATIVE; KETONES NEGATIVE; LEUKOCYTES NEGATIVE; NITRITE NEGATIVE; PROTEIN (STRIP) NEGATIVE; SPECIFIC GRAVITY 1.006 (1.000-1.030); UCUL ADDED? NO; UROBILINOGEN 0.2 MG/DL (0.2-1.0)
[2018-02-15 14:07] LABS: ALBUMIN 3.3 g/dL (3.2-4.8)
[2018-02-15 14:08] LABS: CHLORIDE 101 mEq/L (99-109); POTASSIUM 4.2 mEq/L (3.7-5.4); SODIUM 136 mEq/L (136-147)
[2018-02-15 14:12] LABS: TOTAL BILIRUBIN 0.3 mg/dL (0.0-1.0)
[2018-02-15 14:14] LABS: ALKALINE PHOSPHATASE 64 IU/L (3-129); CREATININE 0.8 mg/dL (0.6-1.3); GFR ESTIMATE (CALCULATED) > 59 mL/min/
[2018-02-15 14:15] LABS: AST (GOT) 15 IU/L (2-34); UREA NITROGEN (BUN) 16 mg/dL (9-23)
[2018-02-15 14:17] LABS: ALT (GPT) 11 IU/L (3-49)
[2018-02-15 14:29] LABS: AMPHETAMINE NEGATIVE (500 ng/mL); BARBITURATES NEGATIVE (200 ng/mL); BENZODIAZEPINES NEGATIVE (150 ng/mL); BUPRENORPHINE NEGATIVE (10 ng/mL); COCAINE NEGATIVE (150 ng/mL); METHADONE NEGATIVE (200 ng/mL); METHAMPHETAMINE NEGATIVE (500 ng/mL); OPIATES (MORPHINE) NEGATIVE (100 ng/mL); OXYCODONE NEGATIVE (100 ng/mL); PHENCYCLIDINE NEGATIVE (25 ng/mL); PROPOXYPHENE NEGATIVE (300 ng/mL); THC CANNABINOIDS NEGATIVE (50 ng/mL); TRICYCLIC ANTIDEPRESSANTS NEGATIVE (300 ng/mL)
[2018-02-15 14:30] LABS: TROP-I INTERPRETATION NEGATIVE; TROPONIN-I < 0.01 ng/mL (0.0-0.30)
[2018-02-15 14:41] LABS: GLUCOSE 94 mg/dL (70-99); TOTAL PROTEIN 5.7 g/dL (6.4-8.3)
[2018-02-15 15:59] LABS: THYROTROPIN (TSH) 1.7 MIU/L (0.4-5.5)
[2018-02-15] MEDS ORDERED: NEURONTIN100 MG PO (18:25)
[2018-02-15] MEDS ORDERED: FEOSOL325 MG PO (18:27)
[2018-02-15] MEDS ORDERED: MYSOLINE50 MG PO (18:32)
[2018-02-15] MEDS ORDERED: ONDANSETRON ODT8 MG PO (18:33)
[2018-02-15] MEDS ORDERED: LIORESAL10 MG PO (18:34)
[2018-02-15] MEDS ORDERED: FLEXERIL10 MG PO (18:34)
[2018-02-15] MEDS ORDERED: NIZORAL SHAMPO120 ML TP (18:35)
[2018-02-15] MEDS ORDERED: ALEVE220 MG PO (18:36)
[2018-02-15 21:09] VITALS: BP 120/58
[2018-02-16 00:39] VITALS: BP 112/62
[2018-02-16 05:49] LABS: HEMATOCRIT 34.5 % (36.0-46.0); HEMOGLOBIN 10.7 G/DL (11.9-15.5); MCH 30.7 PG (29.0-34.0); MCV 98.9 FL (83-99); PLATELET COUNT 198 K/uL (156-360); RBC DIS.WIDTH-CV 11.9 % (11.8-14.6); RBC DIS.WIDTH-SD 42.8 % (39-53); RED BLOOD COUNT 3.49 M/uL (3.80-5.20); WHITE BLOOD COUNT 4.2 K/uL (4.1-10.2)
[2018-02-16 06:10] LABS: CHLORIDE 105 MEQ/L (99-109); CREATININE 0.7 MG/DL (0.6-1.3); GFR ESTIMATE (CALCULATED) > 59 mL/min/; GLUCOSE 86 mg/dL (70-99); SODIUM 138 MEQ/L (136-147); UREA NITROGEN (BUN) 12 mg/dL (9-23)
[2018-02-16 07:41] LABS: SERUM ETHYL ALCOHOL < 10 mg/dL
[2018-02-16 07:55] VITALS: BP 137/75
[2018-02-16 15:52] LABS: IRON 83 MCG/DL (35-150); TRANSFERRIN (TIBC) 253.1 mg/dL (215-380); TRANSFERRIN SATUR. 33 % (20-55)
[2018-02-16 16:13] LABS: FERRITIN 39 NG/ML (10-291)
[2018-02-16 16:20] LABS: FOLIC ACID (FOLATE) > 22.0 NG/ML (5.0-22.0)
[2018-02-16 16:37] VITALS: BP 138/67
[2018-02-16 19:00] VITALS: BP 135/63
[2018-02-17 00:46] VITALS: BP 126/63
[2018-02-17 04:53] LABS: BASOPHIL (%) 0.6 % (0-1); EOSINOPHIL (%) 7.4 % (0-5); EOSINOPHIL COUNT 0.4 K/uL (0-0.3); HEMATOCRIT 33.9 % (36.0-46.0); HEMOGLOBIN 11.2 G/DL (11.9-15.5); IMMATURE GRANULOCYTE (%) 0.2 % (0.0-0.7); LYMPHOCYTE (%) 28.6 % (15-42); LYMPHOCYTE COUNT 1.4 K/uL (1.0-2.8); MCV 96.9 FL (83-99); MONOCYTE (%) 10.9 % (3-12); MONOCYTE COUNT 0.5 K/uL (0-0.8); NEUTROPHIL (%) 52.3 % (45-76); NEUTROPHIL COUNT 2.5 K/uL (1.8-6.4); PLATELET COUNT 202 K/uL (156-360); RBC DIS.WIDTH-CV 11.7 % (11.8-14.6); RBC DIS.WIDTH-SD 41.3 % (39-53); WHITE BLOOD COUNT 4.8 K/uL (4.1-10.2)
[2018-02-17 04:57] VITALS: BP 144/80
[2018-02-17 05:05] LABS: CHLORIDE 107 mEq/L (99-109); SODIUM 138 mEq/L (136-147)
[2018-02-17 05:06] LABS: GLUCOSE 83 mg/dL (70-99)
[2018-02-17 05:10] LABS: CREATININE 0.7 mg/dL (0.6-1.3); GFR ESTIMATE (CALCULATED) > 59 mL/min/
[2018-02-17 05:11] LABS: UREA NITROGEN (BUN) 14 mg/dL (9-23)
[2018-02-17 07:44] VITALS: BP 177/90
[2018-02-17 11:45] VITALS: BP 154/74
[2018-02-17] MEDS ORDERED: LOPRESSOR25 MG PO (12:57)
[2018-02-17] MEDS ORDERED: CYANOCOBAL1000 MCG/2 IM (13:02)
== END 2018-02-17 14:40 | disposition home or self-care (01) ==
LOC: EME 12:12 → EDOF 19:07 → 4SOUTH 19:07 → ENRESERV 19:26 → 4SOUTH 20:41
PROVIDERS: Internal Medicine; Nurse Practitioner Family
DX: R41.82 Altered mental status, unspecified (principal); G40.909 Epilepsy, unspecified, not intractable, without status epilepticus; G89.29 Other chronic pain; F41.8 Other specified anxiety disorders; F32.9 Major depressive disorder, single episode, unspecified; R51 Headache; Z88.2 Allergy status to sulfonamides
CPT/HCPCS: 70450; 80048; 80053; 81003; 82140; 82272; 82306; 82607; 82728; 82746; 83540; 83605; 84425 90; 84439; 84443; 84466; 84484; 85025; 85027; 87040; 87641; 93005; 99281; 99285; G0378; G0480; G8978 GP CJ; G8979 GP CH; J3420; J7030

== ENCOUNTER 2018-05-01 11:07 | Observation (INO) | payer OTHER ==
[~2018-05-01] VITALS: Ht 162.6 cm; Wt 55.4 kg
[~2018-05-01 11:07] MED LIST changes: +ALEVE220 MG PO; +CYANOCOBAL1000 MCG/2 IM; +FEOSOL325 MG PO; +LIORESAL10 MG PO; +NIZORAL SHAMPO120 ML TP; +ONDANSETRON ODT8 MG PO
[2018-05-01 11:31] LABS: BASOPHIL (%) 0.6 % (0-1); BASOPHIL COUNT 0.1 K/uL (0-0.1); EOSINOPHIL (%) 1.3 % (0-5); EOSINOPHIL COUNT 0.1 K/uL (0-0.3); HEMATOCRIT 38.3 % (36.0-46.0); HEMOGLOBIN 12.7 G/DL (11.9-15.5); IMMATURE GRANULOCYTE (%) 0.4 % (0.0-0.7); LYMPHOCYTE (%) 10.9 % (15-42); LYMPHOCYTE COUNT 0.9 K/uL (1.0-2.8); MCH 31.8 PG (29.0-34.0); MCHC 33.2 G/DL (30.0-36.0); MONOCYTE (%) 7.5 % (3-12); MONOCYTE COUNT 0.6 K/uL (0-0.8); NEUTROPHIL (%) 79.3 % (45-76); NEUTROPHIL COUNT 6.7 K/uL (1.8-6.4); PLATELET COUNT 197 K/uL (156-360); RBC DIS.WIDTH-SD 46.3 % (39-53); RED BLOOD COUNT 3.99 M/uL (3.80-5.20); WHITE BLOOD COUNT 8.4 K/uL (4.1-10.2)
[2018-05-01 11:40] LABS: PTT 28.2 SEC (25-37)
[2018-05-01 11:51] LABS: TROP-I INTERPRETATION NEGATIVE; TROPONIN-I < 0.01 ng/mL (0.0-0.30)
[2018-05-01 12:02] LABS: AMYLASE 33 IU/L (1-118); CHLORIDE 102 MEQ/L (99-109); CREATININE 0.8 MG/DL (0.6-1.3); GFR ESTIMATE (CALCULATED) > 59 mL/min/; GLUCOSE 115 mg/dL (70-99); LIPASE 6 U/L (1.0-51.0); SERUM ETHYL ALCOHOL < 10 mg/dL; SODIUM 138 MEQ/L (136-147); UREA NITROGEN (BUN) 13 mg/dL (9-23)
[2018-05-01 13:05] LABS: ALBUMIN 3.6 G/DL (3.2-4.8); ALKALINE PHOSPHATASE 79 IU/L (3-129); ALT (GPT) 21 IU/L (3-49); AST (GOT) 23 IU/L (2-34); DIRECT BILIRUBIN 0.1 mg/dL (0.0-0.3); TOTAL BILIRUBIN 0.4 MG/DL (0.0-1.0); TOTAL PROTEIN 6.2 G/DL (6.4-8.3)
[2018-05-01 14:05] LABS: APPEARANCE CLEAR ((CLEAR)); BILIRUBIN NEGATIVE; BLOOD NEGATIVE; COLOR STRAW ((YELLOW)); GLUCOSE (STRIP) NEGATIVE; KETONES NEGATIVE; LEUKOCYTES NEGATIVE; NITRITE NEGATIVE; PROTEIN (STRIP) NEGATIVE; UCUL ADDED? NO; UROBILINOGEN 0.2 MG/DL (0.2-1.0)
[2018-05-01 14:16] LABS: AMPHETAMINE NEGATIVE (500 ng/mL); BARBITURATES PRESUMPTIVE POSITIVE (200 ng/mL); BENZODIAZEPINES NEGATIVE (150 ng/mL); BUPRENORPHINE NEGATIVE (10 ng/mL); COCAINE NEGATIVE (150 ng/mL); METHADONE NEGATIVE (200 ng/mL); METHAMPHETAMINE NEGATIVE (500 ng/mL); OPIATES (MORPHINE) NEGATIVE (100 ng/mL); OXYCODONE NEGATIVE (100 ng/mL); PHENCYCLIDINE NEGATIVE (25 ng/mL); PROPOXYPHENE NEGATIVE (300 ng/mL); THC CANNABINOIDS NEGATIVE (50 ng/mL); TRICYCLIC ANTIDEPRESSANTS NEGATIVE (300 ng/mL)
[2018-05-01 16:05] LABS: HDL CHOLESTEROL 48 MG/DL (Desirable>=50); LDL CHOLESTEROL 156 mg/dL (Desirable<100); NON-HDL CHOLESTEROL 169 mg/dL (Desirable<160); TOTAL CHOLESTEROL 217 mg/dL (Desirable<200); TRIGLYCERIDES 67 MG/DL (Normal: <150)
[2018-05-01 16:48] VITALS: BP 163/85
[2018-05-01 19:45] VITALS: BP 146/90
[2018-05-01 23:38] VITALS: BP 157/81
[2018-05-01] MEDS ORDERED: LOSARTAN POTAS100 MG PO (23:49)
[2018-05-01] MEDS ORDERED: HYDROCHLOROTHIA25 MG PO (23:50)
[2018-05-01] MEDS ORDERED: CALCIUM 500 +1 EACH PO (23:57)
[2018-05-01] MEDS ORDERED: PRIMIDONE250 MG PO (23:59)
[2018-05-02] MEDS ORDERED: APTIOM800 MG PO
[2018-05-02] MEDS ORDERED: LEXAPRO20 MG PO (00:03)
[2018-05-02] MEDS ORDERED: OMEPRAZOLE40 M1 PO (00:05)
[2018-05-02 03:31] VITALS: BP 154/73
[2018-05-02 08:45] VITALS: BP 171/91
[2018-05-02 09:33] LABS: HEMOGLOBIN A1c (GLYCOHEMOGLOB) 5.3 % (Below 5.7)
[2018-05-02] MEDS ORDERED: ATORVASTATIN CA40 MG PO (10:52)
[2018-05-02] MEDS ORDERED: ASPIR-LOW81 MG PO (10:52)
[2018-05-02 11:30] VITALS: BP 131/83
== END 2018-05-02 14:00 | disposition home or self-care (01) ==
LOC: EME 11:07 → 4SOUTH 14:55 → EDOF 14:55 → ENRESERV 15:20 → 4SOUTH 16:37
PROVIDERS: Emergency Medicine; Hospitalist
DX: R53.1 Weakness (principal); R47.81 Slurred speech; R41.82 Altered mental status, unspecified; G40.909 Epilepsy, unspecified, not intractable, without status epilepticus; G43.909 Migraine, unspecified, not intractable, without status migrainosus; I10 Essential (primary) hypertension; F32.9 Major depressive disorder, single episode, unspecified; J44.9 Chronic obstructive pulmonary disease, unspecified; E03.9 Hypothyroidism, unspecified; E86.0 Dehydration; Z88.2 Allergy status to sulfonamides
CPT/HCPCS: 70450; 70496; 70498; 70551; 80048; 80061; 80076; 81003; 82150; 82948; 83036; 83690; 84484; 84999; 85025; 85610; 85730; 86850; 86900; 86901; 93005; 99281; 99285; G0378; G0480; J1650; J7030

== ENCOUNTER 2018-06-08 12:20 | Day surgery (SDC) | payer OTHER ==
[~2018-06-08] VITALS: Ht 165.1 cm; Wt 52.2 kg
[~2018-06-08 12:20] MED LIST changes: +APTIOM800 MG PO; +ATORVASTATIN CA40 MG PO; +CALCIUM 500 +1 EACH PO; +LEXAPRO20 MG PO; +LOSARTAN POTAS100 MG PO; +PRIMIDONE250 MG PO
[2018-06-08 16:22] VITALS: BP 146/81
== END 2018-06-08 18:47 | disposition home or self-care (01) ==
LOC: EME 12:20 → SDC 16:23
PROC: 0DC58ZZ Extirpation of Matter from Esophagus, Via Natural or Artificial Opening Endoscopic (ICD-10-PCS; principal; 2018-06-08)
DX: T18.128A Food in esophagus causing other injury, initial encounter (principal); K44.9 Diaphragmatic hernia without obstruction or gangrene; K22.2 Esophageal obstruction; J44.9 Chronic obstructive pulmonary disease, unspecified; I10 Essential (primary) hypertension; K21.9 Gastro-esophageal reflux disease without esophagitis; F41.9 Anxiety disorder, unspecified; Z88.2 Allergy status to sulfonamides
CPT/HCPCS: 82948; 99281; 99285; J0330; J2405; J3010